=== PATIENT | male | born 1990 | race Caucasian/White ===

== ENCOUNTER 2017-02-18 22:10 | Emergency (ER) | payer SELFPAY ==
[~2017-02-18] VITALS: Ht 175.3 cm; Wt 90.7 kg
--- NOTE | 2017-02-18 22:22 | NUR ---
PT BIB SELF AMBULATORY TO ER BED 6, PT C/O PAIN IN ABD FOR THE LAST 2 HOURS. PT ALSO STATES HE IS NAUSEATED. PT VSS/RESP EVEN UNLABORED/NAD NOTED/AOX4/SKIN WARM AND DRY.
--- NOTE | 2017-02-18 22:52 | NUR ---
IV STARTED ON RIGHT AC 18G, LABS DRAWN AND SENT TO LAB
--- NOTE | 2017-02-18 22:54 | NUR ---
VBG COLLECTED, SENT TO RT.
[2017-02-18] MEDS ORDERED: HYDROMORPHONE INJ 2 MG/ML DISP.SYRIN ONE (22:55)
[2017-02-18] MEDS ORDERED: ONDANSETRON HCL/PF 4 MG/2 ML VIAL ONE (22:55)
[2017-02-18] MEDS ORDERED: IV NS 0.9% 250 ML IV ONE (22:58)
[2017-02-18] MEDS ORDERED: DIATR MEGLU/DIATRIZOATE SODIUM 30 ML BOTTLE (GASTROGRAPHIN) ONE (22:58)
[2017-02-18] MEDS ORDERED: IOHEXOL-300 100 ML VIAL IV ONE (22:58)
[2017-02-18 22:59] LABS: BASOPHILS % (AUTO) 0.1 % (0.0-2.0); EOSINOPHILS % (AUTO) 0.3 % (0.0-6.0); HEMATOCRIT 48 % (39-51); LYMPHOCYTES # (AUTO) 0.8 /CMM (0.8-4.8); LYMPHOCYTES % (AUTO) 5.3 % (20.0-44.0); MEAN CORPUSCULAR HEMOGLOBIN 31 PG (26.0-33.0); MEAN CORPUSCULAR HGB CONC 34 g/dl (31.0-36.0); MEAN CORPUSCULAR VOLUME 93 fL (80-96); MONOCYTES # (AUTO) 0.4 /CMM (0.1-1.30); MONOCYTES % (AUTO) 2.4 % (2.0-12.0); NEUTROPHILS # (AUTO) 14.3 /CMM (1.8-8.9); NEUTROPHILS % (AUTO) 91.9 % (43.0-81.0); PLATELET COUNT (AUTO) 244 /CMM (150-450); RDW COEFFICIENT OF VARIATION 13.7 (11.5-15.0); RED BLOOD CELL COUNT(AUTO) 5.14 MIL/uL (4.5-6.0); WHITE BLOOD COUNT (AUTO) 15.6 K/uL (4.3-11.0)
[2017-02-18] MEDS ORDERED: IV NS 0.9% 1,000 ML BAG IV ONE ×2 (23:00→23:30)
[2017-02-18] MEDS ORDERED: HYDROMORPHONE INJ 2 MG/ML DISP.SYRIN IV ONE (23:00)
[2017-02-18] MEDS ORDERED: ONDANSETRON HCL/PF 4 MG/2 ML VIAL IVP ONE (23:00)
[2017-02-18 23:09] LABS: CALCIUM, SERUM 9.6 mg/dL (8.5-10.1); POTASSIUM 3.2 mmol/L (3.5-5.1)
--- NOTE | 2017-02-18 23:09 | NUR ---
PT GIVEN ORAL CONTRAST PER MD.
[2017-02-18] MEDS ORDERED: METOCLOPRAMIDE HCL 10 MG/2 ML VIAL ONE (23:12)
[2017-02-18 23:14] LABS: INR 0.98 (0.87-1.13); PROTHROMBIN TIME 10.2 SECS (9.5-12.7)
[2017-02-18 23:15] LABS: ALBUMIN 4.7 g/dL (3.4-5.0); BILIRUBIN,DIRECT 0.1 mg/dL (0.0-0.2); BILIRUBIN,TOTAL 0.4 mg/dL (0.2-1.0); TOTAL PROTEIN, SERUM 8.3 g/dL (6.4-8.2)
[2017-02-18 23:18] LABS: APPEARANCE,URINE CLEAR (CLEAR); BILIRUBIN,URINE NEGATIVE (NEGATIVE); BLOOD, URINE TRACE-INTA Ery/uL (NEGATIVE); COLOR,URINE YELLOW (YELLOW); KETONES,URINE 3+ (NEGATIVE); LEUKOCYTE ESTERASE ,URINE NEGATIVE (NEGATIVE); NITRITE, URINE NEGATIVE (NEGATIVE); PROTEIN,URINE NEGATIVE (NEGATIVE); UGLUCOSE NEGATIVE (NEGATIVE); UROBILINOGEN,URINE 0.2 EU/dL (0.2)
[2017-02-18 23:25] LABS: BACTERIA,URINE None seen /HPF (None Seen); SQUAMOUS EPITHELIAL CELL,UR Few /HPF (None Seen); WBC,URINE 0-2 /HPF (0-3)
[2017-02-18] MEDS ORDERED: METOCLOPRAMIDE HCL 10 MG/2 ML VIAL IV ONE (23:30)
--- NOTE | 2017-02-18 23:34 | NUR ---
PT FINISHED ORAL CONTRAST, XRAY CALLED MADE AWARE.
[2017-02-19] MEDS ORDERED: POTASSIUM CL. PREMIX PERIPHER. 50 ML IV SCH
--- NOTE | 2017-02-19 00:25 | NUR ---
PT AMBULATORY TO THE RESTROOM WITH STEADY GAIT.
--- NOTE | 2017-02-19 00:45 | NUR ---
PT TO CT, VSS
--- NOTE | 2017-02-19 01:00 | NUR ---
PT BACK FROM CT.
--- NOTE | 2017-02-19 01:21 | NUR ---
PT AMBULATORY TO RESTROOM WITH STEADY GAIT.
[2017-02-19] MEDS ORDERED: FAMOTIDINE/PF INJ 20 MG/2 ML VIAL IV ONE ×2 (01:27→01:30)
--- NOTE | 2017-02-19 01:46 | NUR ---
IV removed. Catheter intact and site benign. Pressure and 4x4 applied to site. No bleeding noted. Patient discharged to home in stable condition, instructed not to drive. Written and verbal after care instructions given. Patient verbalizes understanding of instruction. Pt ambulatory with a steady gait
[2017-02-19 01:48] VITALS: BP 133/74
== END 2017-02-19 01:49 | disposition home or self-care (01) ==
LOC: ER 22:13
DX: R10.84 Generalized abdominal pain (principal)
CPT/HCPCS: 36415; 74160; 80048; 80076; 80305; 81001; 82803; 83605; 83690; 85025; 85730; 96361; 96374; 96375; 99285; A4606; J1170; J2405; J2765; J3490; J7030; J7050; Q9963; Q9967; Z7610; 81000-TC